=== PATIENT | female | born 1995 | race Two or more races ===

== ENCOUNTER 2019-04-23 13:25 | Outpatient (CLI) | payer OTHER ==
[~2019-04-23] VITALS: Ht 167.6 cm; Wt 91.8 kg
[2019-04-23 13:51] VITALS: BP 130/62
--- NOTE | 2019-04-23 15:39 | IPNPDOC ---
Obstetrical Progress Note Date of Service Apr 23, 2019 Subjective [facility] L&D Observation Note S: Ms. Coon is a 23yo at 38+5wks who presents today with c/o ROM. Pt reports that early yesterday morning she felt a pop, but no gush of fluid; this was followed by a 1x "gush" at 1400 on the that "was a small amount of flu id" on her pad. She denies any further leaking of fluids. Pt does admit to intercourse yesterday. Pt reports +FM and some intermittent ctx, denies VB. This is complicated by GBS+ status. O: VS-WNL, afebrile GEN: A&Ox3, NAD ABD: gravid, NTTP; soft, no guarding or rebound tenderness SVE: 1/L/-2, posterior and soft FHR: 130s moderate variability; + accelerations; late deceleration noted while pt was lying directly flat on back; resolved with repositioning TOCO: ctx q2-4, mild by palpation, pt can feel these, but denies pain Ferning: Negative US: VTX, adequate fluid pockets A/P: 23yo at 38+5wks, no ROM, Category I FHT, possible early labor -Discharge to home with return precautions -Keep appointment scheduled for next week in clinic Objective Vital Signs Date Time Temp Pulse Resp B/P (MAP) Pulse Ox O2 Delivery O2 Flow Rate FiO2 04/23/19 13:51 97.9 69 18 130/62 (84) TRISH HERNANDEZ CNM Apr 23, 2019 15:39
[2019-04-24] MEDS ORDERED: PRENTAB9 PO (04:31)
== END 2019-04-23 14:52 | disposition home or self-care (01) ==
LOC: M LDO 13:25
PROVIDERS: ATTEND Obstetrics & Gynecology
DX: O47.1 False labor at or after 37 completed weeks of gestation (principal); Z3A.38 38 weeks gestation of pregnancy
CPT/HCPCS: 59025; 76815; G0378; G0463

== ENCOUNTER 2019-04-24 04:16 | Inpatient (IN) | payer OTHER ==
[~2019-04-24] VITALS: Ht 167.6 cm; Wt 91.8 kg
[2019-04-24] VITALS (28 sets, daily range): BP systolic 103–144; BP diastolic 53–82
[2019-04-24] MEDS ORDERED: PRENTAB9 PO (04:31)
[2019-04-24] MEDS ORDERED: PENICILLIN G POTASSIUM IV 5 MU in D5W MINI-BAG PLUS 100 ML IV ONE (05:15)
[2019-04-24] MEDS ORDERED: LACTATED RINGER'S 1000 ML IV STA (06:37)
[2019-04-24] MEDS ORDERED: LR 1,000 ML IV SCH (06:37)
--- NOTE | 2019-04-24 06:47 | HPEPDOC ---
Obstetrical History & Physical General Date of Admission Apr 24, 2019 at 06:38 History of Present Illness 23 yo at 38+6 weeks gestation by 19+2 week US on [id number] presents to L&D with regular, painful contractions. She denies any vaginal bleeding or leakage of fluid. She endorses excellent movement. Chief Complaint: Contractions, term Information Provided By: Patient Age: 23 : 2 Term: 1 Pre-term: 0 Abortions: 0 Livin Care Care: Good Care Dating Final EDC: May 02, 2019 Final EDC for Daily Update: May 02, 2019 Final EDC by: 2nd trimester (US) (19+2 week US on [id number] set LITA of [id number]) Antepartum Course Diagnos(e)s GBS positive Excessive weight gain in (>40 lbs) Past Medical History Past Obstetrical History : Past Obstetrical History: Multigravida (Term with pelvis proven to 5lbs) Type of Delivery: Spontaneous Vaginal Del. [employer] History: No pertinent history Past Medical History Medical History Denies Surgical History: Denies/None Family History Significant Family History: No pertinent family hx Social History Marital Status: Family situation: Spouse/partner home Psychosocial History: No pertinent psych hx * Smoker: non-smoker Alcohol: Denies Drugs: denies Imunizations Tdap status: current Influenza Status: needs Allergies Coded Allergies: No Known Allergies (Unverified , 04/24/19) NKDA Medications Scheduled No.137/Iron/Folic Acd ( Vitamin Tablet) 1 Each Tablet, 1 TAB PO DAILY Physical Examination Physical Examination GENERAL: Alert and oriented times three. ABDOMEN: Gravid and non-tender to touch. FETUS: Is vertex (VTX) by sterile vaginal examination (SVE) EXTREMITIES: No edema. Vital Signs/I&O Vital Signs Date Time Temp Pulse Resp B/P (MAP) Pulse Ox O2 Delivery O2 Flow Rate FiO2 04/24/19 04:41 97.9 67 18 114/64 (81) Laboratory Data Urine Culture: No Growth, Escherichia (E.) Coli Pertinent Laboratoy Data Blood Type: A+ RBC Antibody Screen: Negative HIV: Negative Hepatitis B: Negative Hepatitis C: Unknown Rapid Plasma Reagin: Nonreactive Rubella: Immune Varicella: Nonreactive Chlamydia/Gonorrhea: Negative Group B Streptococcus: Positive Quad Screen Test: Unknown Cystic Fibrosis: Unknown Glucose Tolerance Test: 87 Anatomy Ultrasound Placenta Location: Posterior Normal Anatomy: Yes Placenta Previa: No Steroid Therapy Steroid Therapy: No Vaginal Examination Dilation: 6 cm Effacement: 90% Station: -1 Cervical Consistency: Soft Cervical Position: Middle Presentation: Cephalic presentation Position: Vertex (occiput) Assessment Heart Rate (FHR): 140 Variability: Moderate Accelerations: Positive Decelerations: None Tocometer Contractions: Yes Frequency: regular Duration: greater than 60 seconds Strength: palpated as moderate Assessment/Plan Assessment 23 yo at 38+6 weeks presents to L&D in active labor. Plan Admit to L&D for expectant management of labor. Will augment as clinically indicated. Apply IV fluids. GBS positive. Will treat with PCN. Clear liquid diet. Patient may have epidural if desired. Anticipate . DO RHYS Valdez CHRISTOPHER J. DO Apr 24, 2019 06:47
[2019-04-24 06:53] LABS: HEMATOCRIT 34.8 % (36.0-47.0); HEMOGLOBIN 11.2 g/dl (12.0-15.5); MEAN CORPUSCULAR HEMOGLOBIN 25.9 pg (27.0-33.0); MEAN CORPUSCULAR HGB CONC 32.2 g/dl (32.0-36.5); MEAN CORPUSCULAR VOLUME 80.6 fl (80.0-96.0); PLATELET COUNT, AUTOMATED 267 10^3/uL (150-450); RED BLOOD COUNT 4.32 10^6/uL (4.00-5.40); WHITE BLOOD COUNT 8.9 10^3/uL (4.0-10.0)
[2019-04-24] MEDS ORDERED: FENTANYL 2MCG/ML ROPIVACAINE 0.2% IN 0.9% NACL 100ML IVBAG As Ordered ONE (07:15)
[2019-04-24] MEDS ORDERED: ePHEDrine SULFATE 25 MG/5 ML(5MG/ML) SYRINGE IV PRN (08:30)
[2019-04-24] MEDS ORDERED: FENTANYL/ROPIVACAINE/NACL BAG 100 ML EPIDURAL SCH (08:30)
[2019-04-24] MEDS ORDERED: EPIDURAL COMMENT XX SCH (08:30)
[2019-04-24] MEDS ORDERED: ONDANSETRON 4MG/2ML VIAL (J2405) IV PRN (08:30)
[2019-04-24] MEDS ORDERED: EPIDURAL/PCA KEYS XX PRN (08:30)
[2019-04-24] MEDS ORDERED: diphenhydrAMINE INJ 50MG/ML VIAL (J1200) IV PRN (08:30)
[2019-04-24] MEDS ORDERED: LACTATED RINGER'S 1000 ML IV PRN (08:30)
[2019-04-24] MEDS ORDERED: NALOXONE INJ 0.4 MG/1 ML VIAL (J2310) IV PRN (08:30)
[2019-04-24] MEDS ORDERED: REFRIGERATOR IV KEYS XX PRN (08:30)
[2019-04-24] MEDS ORDERED: OXYTOCIN 30 UNITS IN 0.9% NaCl 500ML IV BAG (J2590) As Ordered ONE (08:32)
[2019-04-24] MEDS ORDERED: PENICILLIN G POTASSIUM IV 2.5 MU in APPROPRIATE DILUENT 1 EA IV SCH (10:00)
--- NOTE | 2019-04-24 11:58 | IPNPDOC ---
Text Note Date of Service The patient was seen on 04/24/19. NOTE Intrapartum Note Socorro is a 23yo at 38w6d admitted early this morning for active labor. GBS positive. She is currently comfortable with epidural, was sleeping when I recently entered the room. She has now completed 2 doses of IV PCN. SCE 9/C/-1, on cervix check there was leaking of clear fluid so recently SROM'ed or SROMed with check Cat I FHRT w/bl 130, +accels, -decels, mod anh [place]: ctx q2-5min Continue to closely monitor Plan to recheck in 2hr or earlier as indicated Safe to proceed Dr. Funmilayo Moore MD VS,Álvaro, I+O VS, Álvaro, I+O Laboratory Tests 04/24/19 05:28 Red Blood Count 4.32, Mean Corpuscular Volume 80.6, Mean Corpuscular Hemoglobin 25.9 L, Mean Corpuscular Hemoglobin Concent 32.2, Red Cell Distribution Width 14.1 Vital Signs Date Time Temp Pulse Resp B/P (MAP) Pulse Ox O2 Delivery O2 Flow Rate FiO2 04/24/19 11:01 96.9 75 16 109/57 (74) Funmilayo Moore MD Apr 24, 2019 11:58
[2019-04-24] MEDS ORDERED: OXYTOCIN DRIP 30 UNITS in APPROPRIATE DILUENT 1 EA IV SCH (13:02)
--- NOTE | 2019-04-24 13:12 | DNPDOC ---
[facility] Delivery Note Delivery Note DATE OF DELIVERY: 24 April 2019 PREDELIVERY DIAGNOSIS: 38w6d weeks' gestation and labor. POST DELIVERY DIAGNOSIS: Delivered. PROCEDURE: Spontaneous vaginal delivery ROUSTABOUT HAND: Dr. Funmilayo Moore MD ANESTHESIA: epidural ESTIMATED BLOOD LOSS: 250 mL. FINDINGS: 6 pound 12 ounce (3050g) female infant, Score 9/9 DELIVERY SUMMARY: Socorro is a 23yo [id number] s/p uncomplicated at 38w6d after being admitted in active labor. She received an epidural and progressed to 9/C/-1 at which point she had SROM. She had received 2 doses of IV PCN for GBS positive. When she reached C/C/0, she felt strong rectal pressure and desire to push. With 2 sets of pushes, head delivered OA, restituted SOLITARIO. Right anterior shoulder delivered followed by posterior shoulder and corpus. Infant vigorous with spontaneous cry, apgars 9/9, placed on maternal abdomen, nose and mouth suctioned. After approx 2 min, cord was clamped x2 and cut by FOB. With fundal massage and traction on the cord, placenta delivered spontaneously and intact with 3 vessel centrally inserted cord. Bimanual uterine massage performed and pitocin given per protocol with fundus then firm at u-2cm. Inspection of perineum and vagina revealed small hymenal geovany on the left sidewall reapproximated with a single figure of 8 using 3-0 vicryl with total hemostasis. Mom and infant were doing well when I left the room. MD Teresa Sanchez Katrina D MD Apr 24, 2019 13:12
[2019-04-24] MEDS ORDERED: DIBUCAINE 1% OINTMENT 30GM TOP PRN (13:15)
[2019-04-24] MEDS ORDERED: DOCUSATE SODIUM 100 MG CAP PO PRN (13:15)
[2019-04-24] MEDS ORDERED: ACETAMINOPHEN 500 MG TAB PO PRN (13:15)
[2019-04-24] MEDS ORDERED: RHOGAM 300 MCG (1500 IU) INJ (J2790) IM SCH (13:15)
[2019-04-24] MEDS ORDERED: IBUPROFEN 600 MG TAB PO PRN (13:15)
[2019-04-24] MEDS ORDERED: IBUPROFEN 800 MG TAB PO PRN (13:15)
[2019-04-24] MEDS ORDERED: MEASLES,MUMPS,RUBELLA VACCINE INJ (MMR-II) (90707) SC SCH (13:15)
[2019-04-24] MEDS ORDERED: ACETAMINOPHEN TAB 650MG DOSE (2X325MG) PO PRN (13:15)
[2019-04-25 06:00] VITALS: BP 104/52
[2019-04-25] MEDS: PRENATAL VITAMINS CHEWABLE TABLET PO SCH (10:47)
[2019-04-25 18:00] VITALS: BP 118/64
[2019-04-26 05:28] VITALS: BP 103/54
--- NOTE | 2019-04-26 07:54 | IPNPDOC ---
Progress Note Date of Service: Apr 26, 2019 Day#: 2 Progress Note Subjective: Pt doing well. No questions/concerns today. Lochia minimal. Tolera ting PO. + flatus. Denies CP, SOB, or leg pain. Ambulating and voiding without issue. Bottle feeding. OBJECTIVE: VITAL SIGNS: Within normal limits, afebrile. Alert and oriented times three. Breath sounds clear to auscultation. Heart rate: Regular rate and rhythm, no murmurs, rubs or gallops. Abdomen: Fundus firm at U-2. Soft, NTTP. Minimal lochia. Assessment: 23yo PPD#2 s/p PLAN: 1. Discharge to home today. 2. Tylenol and Motrin for pain. 3. Encourage breast feeding and ambulation. 4. Routine PP visit in 6 weeks in clinic. 5. Discussed return precautions at length. VS, I&O, 24H, Fishbone Vital Signs/I&O Vital Signs Date Time Temp Pulse Resp B/P (MAP) Pulse Ox O2 Delivery O2 Flow Rate FiO2 04/26/19 05:28 97.8 58 16 103/54 (70) 100 ELISE GIPSON MD Apr 26, 2019 07:54
[2019-04-26] MEDS ORDERED: COLA100C5 PO (07:56)
[2019-04-26] MEDS ORDERED: ACET-683 PO (07:56)
[2019-04-26] MEDS ORDERED: IBUP-1022 PO (07:56)
[2019-04-26] MEDS: PRENATAL VITAMINS CHEWABLE TABLET PO SCH (10:00)
== END 2019-04-26 12:20 | disposition home or self-care (01) | DRG 807 ==
LOC: M LDO 04:16 → M LDI 06:38 → M OBS 15:50
PROVIDERS: ADMIT Obstetrics & Gynecology; ATTEND Obstetrics & Gynecology
PROC: 10E0XZZ Delivery of Products of Conception, External Approach (ICD-10-PCS; principal; 2019-04-24)
PROC: 0HQ9XZZ Repair Perineum Skin, External Approach (ICD-10-PCS; 2019-04-24)
DX: O99.824 Streptococcus B carrier state complicating childbirth (principal); Z37.0 Single live birth; Z3A.38 38 weeks gestation of pregnancy; O26.03 Excessive weight gain in pregnancy, third trimester; O70.0 First degree perineal laceration during delivery

== ENCOUNTER 2020-02-27 14:45 | Emergency (ER) | payer OTHER ==
[~2020-02-27] VITALS: Ht 167.6 cm; Wt 84.1 kg
[~2020-02-27 14:45] MED LIST: ACET-683 PO; COLA100C5 PO; IBUP-1022 PO; PRENTAB9 PO
[2020-02-27 16:31] VITALS: BP 121/77
== END 2020-02-27 16:35 | disposition home or self-care (01) ==
LOC: M ED 14:45
DX: N63.10 Unspecified lump in the right breast, unspecified quadrant (principal)